=== PATIENT | female | born 1975 | race African-American/Black ===

== ENCOUNTER 2018-02-25 11:18 | Outpatient (CLI) | payer OTHER ==
--- NOTE | 2018-02-25 12:34 | ULT ---
ABDOMINAL ULTRASOUND: HISTORY: Abdominal pain, predominantly right-sided. TECHNIQUE: Real-time imaging of the upper abdomen was performed. FINDINGS: This shows a normal appearing gallbladder. The technologist reports a negative ultrasound Ambrose sig n. The common duct is 3 mm. The liver is obscured but shows no focal abnormalities. It measures 17 cm in length. There is suggestion of some fatty change. The spleen is within normal limits in size at 8.4 cm. The pancreas is largely obscured. Both right and left kidneys are not well visualized. They appear to be normal in size and not obstructed. IMPRESSION: Somewhat limited examination due to bowel gas. Slightly increased echogenicity to the liver suggests fatty change. POS: [facility]
== END 2018-02-25 11:19 | disposition home or self-care (01) ==
LOC: SCSULT 11:18
PROVIDERS: ATTEND Family Medicine
DX: R10.11 Right upper quadrant pain (principal); R93.2 Abnormal findings on diagnostic imaging of liver and biliary tract
CPT/HCPCS: 76700

== ENCOUNTER 2018-07-08 11:34 | Outpatient (CLI) | payer OTHER ==
--- NOTE | 2018-07-08 12:55 | RAD ---
CHEST TWO VIEWS: HISTORY: Dyspnea. COMPARISON: 06/15/2016 FINDINGS: The cardiac silhouette and pulmonary vasculature are unremarkable. The mediastinum is midline. No c onfluent air space consolidation, pneumothorax, or pleural fluid is evident. IMPRESSION: No active cardiopulmonary abnormalities are demonstrated. POS: [facility]
== END 2018-07-08 11:35 | disposition home or self-care (01) ==
LOC: BICRAD 11:34
PROVIDERS: ATTEND Family Medicine
DX: R06.00 Dyspnea, unspecified (principal)
CPT/HCPCS: 36415; 71046; 80053; 81003; 82164; 83520; 84443; 85025; 85652; 86038; 86200; 86225

== ENCOUNTER 2018-08-13 22:10 | Emergency (ER) | payer OTHER ==
--- NOTE | 2018-08-13 23:31 | RAD ---
PA AND LATERAL CHEST X-RAY 08/13/18 HISTORY: Bronchitis, sinus infection. Wheezing today. COMPARISON: 07/08/18. FINDINGS: The cardiac silhouette and pulmonary vasculature are within normal limits. The lungs are clear. There has been no interval change when compared to the prior exam. IMPRESSION: No acute cardiopulmonary process. POS: [facility]
== END 2018-08-13 23:28 | disposition home or self-care (01) ==
LOC: ERS 22:10
DX: J20.9 Acute bronchitis, unspecified (principal)
CPT/HCPCS: 71046; 94640; J7620